=== PATIENT | male | born 1995 | race Caucasian/White ===

== ENCOUNTER 2018-10-15 18:25 | Emergency (ER) | payer SELFPAY ==
[2018-10-15] MEDS ORDERED: Cyclobenzaprine 10 MG Tab PO ONE (18:26)
--- NOTE | 2018-10-15 19:09 | EDM.PDOC ---
ED HPI GENERAL MEDICAL PROBLEM - General Chief Complaint: Lower Extremity Injury/Pain Stated Complaint: Right hip pain Time Seen by Provider: 10/15/18 18:59 - History of Present Illness INITIAL COMMENTS - FREE TEXT/NARRATIVE: Ke is a 23 year old male who presents to the ED with c/o low back pain R> L. He reports he was snowboarding over the weekend. Reports he had a accident in which he "tumbled trying to avoid falling on a kid." He reports he has had pain since, but last night his right leg went numb. He reports he got up from sitting on porch and his right leg was numb again this evening, prompting his ED visit. He rates pain 4/10. Pain is currently located in right lower back. No loss of bowel/bladder. Has tried ibuprofen for pain, with some relief. Denies any other issues. Onset Date: 10/13/18 Duration: Intermittent Location: Reports: Back, Lower Extremity, Right, Radiates to Quality: Reports: Ache Severity: Moderate Improves with: Reports: Medication Worsens with: Reports: Immobilization, Movement Associated Symptoms: Reports: No Other Symptoms. 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 Right Hip Pain Score (Numeric/FACES): 4 - Related Data Allergies Allergy/AdvReac Type Severity Reaction Status Date / Time ceftriaxone [From Rocephin] Allergy Rash Verified 10/15/18 18:34 Home Meds: Home Meds Cyclobenzaprine [Flexeril] 10 mg PO TID PRN #20 tab 10/15/18 [Rx] Past Medical History - Past Health History Medical/Surgical History: Denies Medical/Surgical History Respiratory History: Reports: Asthma - Past Surgical History Other Musculoskeletal Surgeries/Procedures:: left wrist surgery Aug 2017 Social & Family History - Tobacco Use Smoking Status *Q: Current Every Day Smoker Years of Tobacco use: 4 Packs/Tins Daily: 0.5 - Caffeine Use Caffeine Use: Reports: Coffee - Alcohol Use Days Per Week of Alcohol Use: 1 Number of Drinks Per Day: 1 Total Drinks Per Week: 1 - Recreational Drug Use Recreational Drug Use: No Review of Systems - Review of Systems Review Of Systems: ROS reveals no pertinent complaints other than HPI. ED EXAM, GENERAL - Physical Exam Exam: See Below Exam Limited By: No Limitations General Appearance: Alert, WD/WN, No Apparent Distress Eye Exam: Bilateral Eye: EOMI, PERRL Peripheral Pulses: 2+: Dorsalis Pedis (L), Dorsalis Pedis (R) Back Exam: Full Range of Motion, Other (tenderness to right lower back). No: Paraspinal Tenderness, Vertebral Tenderness Extremities: Normal Inspection, Normal Range of Motion, Non-Tender, No Pedal Edema, Normal Capillary Refill Neurological: Alert, Oriented, CN II-XII Intact, Normal Cognition, Normal Gait, Normal Reflexes, No Motor/Sensory Deficits Psychiatric: Normal Affect, Normal Mood Skin Exam: Warm, Dry, Intact, Normal Color, No Rash Course - Vital Signs Last Recorded V/S: Last Vital Signs Temp 97.3 F 10/15/18 18:35 Pulse 90 10/15/18 18:35 Resp 20 10/15/18 18:35 BP 123/85 10/15/18 18:35 Pulse Ox 100 10/15/18 18:35 - Orders/Labs/Meds Orders: Active Orders 24 hr Category Date Time Status Lumbar Spine 2 or 3V [CR] Stat Exams 10/15/18 19:03 Taken Departure - Departure Time of Disposition: 19:38 Disposition: Home, Self-Care 01 Condition: Good Clinical Impression: Spasm of muscle of lower back Low back pain Qualifiers: Chronicity: acute Back pain laterality: right Sciatica presence: without sciatica Qualified Code(s): M54.5 - Low back pain Contusion of lower back Qualifiers: Encounter type: initial encounter Qualified Code(s): S30.0XXA - Contusion of lower back and pelvis, initial encounter - Discharge Information *PRESCRIPTION DRUG MONITORING PROGRAM REVIEWED*: Not Applicable *COPY OF PRESCRIPTION DRUG MONITORING REPORT IN PATIENT PHYLICIA: Not Applicable Instructions: Back Pain, Adult Referrals: Taco Howard PA-C [Primary Care Provider] - Forms: ED Department Discharge Additional Instructions: Discussed xray results with patient. No obvious acute fracture noted. Will notify patient once radiologist report is available. Alternate Tylenol and ibuprofen as needed for pain. Flexeril every 8 hours as needed for low back pain. Alternate ice and heat to affected area. Activity as tolerated. Follow up with PCP if symptoms worsen or do not improve. - My Orders Last 24 Hours: My Active Orders 10/15/18 19:03 Lumbar Spine 2 or 3V [CR] Stat - Assessment/Plan Last 24 Hours: My Active Orders 10/15/18 19:03 Lumbar Spine 2 or 3V [CR] Stat
[2018-10-15] MEDS ORDERED: Take Home: Cyclobenzaprine 10 MG Tab, 4 Tab Pack PO ONE (19:42)
== END 2018-10-15 19:52 | disposition home or self-care (01) ==
LOC: CC.ED 18:25
DX: S30.0XXA Contusion of lower back and pelvis, initial encounter (principal); M62.830 Muscle spasm of back; F17.210 Nicotine dependence, cigarettes, uncomplicated; Z88.8 Allergy status to other drugs, medicaments and biological substances; Y93.23 Activity, snow (alpine) (downhill) skiing, snowboarding, sledding, tobogganing and snow tubing
CPT/HCPCS: 72100; 99283; A9270-GY

== ENCOUNTER → 2019-03-22 | Day surgery (SDC) | payer MEDICAID ==
[~2019-03-22] MED LIST: Lactated Ringers 1,000 ML IV SCH; Propofol 200 MG/20 ML SDV IV ONE
--- NOTE | 2019-03-25 09:14 | OR ---
DATE OF OPERATION: 03/22/2019 PREOPERATIVE DIAGNOSIS: PERSISTENT NAUSEA AND VOMITING. POSTOPERATIVE DIAGNOSIS: MILD TO MODERATE HIATAL HERNIA WITH REFLUX ESOPHAGITIS. SURGEON: Edgar Hodgson MD PROCEDURE: ESOPHAGOGASTRODUODENOSCOPY WITH BIOPSY X2, CORTNEY. ANESTHESIA: MAC via [employer] OFFICER. COMPLICATIONS: None. SPECIMEN: 1. Antral CORTNEY. 2. Distal esophageal biopsy x2. FINDINGS: 1. Full-length EGD. 2. Mild to moderate sized hiatal hernia with reflux esophagitis, grade 1. RECOMMENDATIONS: Ongoing medical followup with Min Howard. INDICATIONS: The patient has been having ongoing issues for over a year of severe nausea and reflux symptoms with vomiting at times. Min sent him for diagnostic EGD. DESCRIPTION OF PROCEDURE: The patient was prepped and draped, placed in the left lateral decubitus position. A lubricated Olympus gastroscope was inserted over a bit and advanced to cricopharyngeus area and easily intubated into the esophagus. The esophageal lining was benign until its most distal portion. The patient's Z-line is located around 37 cm. There is a mild, maybe even slightly moderate-sized hiatal hernia present with a significant amount of spontaneous reflux seen. There is grade 1 distal esophagitis with some linear erythema and erosion. No krystian ulcerations. Two biopsies were taken of the most affected areas. The scope was advanced into the stomach through the pylorus and into the second portion of the duodenum. This and the duodenal bulb were benign. Scope was brought back into the stomach and retroflexed. The upper fundus and cardia were benign. Upon straightening, the rest of the fundus and antrum were unremarkable. A CLOtest was obtained. Air was then suctioned from the stomach and the scope removed without complication. BEBETO/ARTEMIO /[id number]
== END ==
LOC: CC.SDS 12:03
PROVIDERS: ATTEND Family Medicine
DX: K44.9 Diaphragmatic hernia without obstruction or gangrene (principal); K21.0 Gastro-esophageal reflux disease with esophagitis; I51.89 Other ill-defined heart diseases; Z88.1 Allergy status to other antibiotic agents; Z87.891 Personal history of nicotine dependence
CPT/HCPCS: 87081; J2704; J7120

== ENCOUNTER 2019-04-22 13:15 | Emergency (ER) | payer MEDICAID ==
--- NOTE | 2019-04-22 14:46 | EDM.PDOC ---
ED HPI GENERAL MEDICAL PROBLEM - General Chief Complaint: General Stated Complaint: UPSET STOMACH Time Seen by Provider: 04/22/19 14:22 Source of Information: Reports: Patient History Limitations: Reports: No Limitations - History of Present Illness INITIAL COMMENTS - FREE TEXT/NARRATIVE: Ke is a 23 yo male who presents to the ED with concerns of nausea. He states he was spraying his yard with a chemical. "Malathion" and did get some on his skin. Did take a shower to wash it off but is worried that he absorbed too much through his skin since he woke up not feeling well. States he was last exposed around 2030 yesterday evening. He also states he did have some diarrhea when he woke up, which has subsided now. States after the diarrhea this morning has had an upset stomach. Denies any emesis. States he is feeling better this afternoon than this morning. 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 - Past Surgical History Respiratory Surgical History: Reports: None GI Surgical History: Reports: EGD Musculoskeletal Surgical History: Reports: ORIF, Other (See Below) Other Musculoskeletal Surgeries/Procedures:: left wrist surgery Aug 2017 Dermatological Surgical History: Reports: None Social & Family History - Family History Family Medical History: Noncontributory - Tobacco Use Smoking Status *Q: Current Every Day Smoker Years of Tobacco use: 9 Packs/Tins Daily: 1 - Caffeine Use Caffeine Use: Reports: Coffee, Energy Drinks - Recreational Drug Use Recreational Drug Use: No ED ROS GENERAL - Review of Systems Review Of Systems: ROS reveals no pertinent complaints other than HPI. HEENT: Reports: No Symptoms Respiratory: Reports: No Symptoms, Cough (chronic, smoker). Denies: Shortness of Breath Cardiovascular: Reports: No Symptoms GI/Abdominal: Reports: Diarrhea (resolved), Nausea (does suffer from chronic nausea as well d/t GERD). Denies: Abdominal Pain, Vomiting ED EXAM, GENERAL - Physical Exam Exam: See Below Exam Limited By: No Limitations General Appearance: Alert, WD/WN, No Apparent Distress Ears: Normal External Exam, Normal Canal, Hearing Grossly Normal, Normal TMs Nose: Normal Inspection, Normal Mucosa, No Blood Throat/Mouth: Normal Inspection, Normal Lips, Normal Teeth, Normal Gums, Normal Oropharynx, Normal Voice, No Airway Compromise Head: Atraumatic, Normocephalic Neck: Normal Inspection, Supple Respiratory/Chest: No Respiratory Distress, Lungs Clear, Normal Breath Sounds, No Accessory Muscle Use Cardiovascular: Regular Rate, Rhythm, No Murmur GI/Abdominal: Normal Bowel Sounds, Soft, Non-Tender, No Organomegaly, No Distention Extremities: Normal Inspection, Normal Range of Motion, Non-Tender, No Pedal Edema, Normal Capillary Refill Neurological: Alert, Oriented, No Motor/Sensory Deficits Psychiatric: Normal Affect, Normal Mood Skin Exam: Warm, Dry, Intact, Normal Color, No Rash, Other (multiple mosquito bites to bilateral arms. ) Course - Vital Signs Last Recorded V/S: Last Vital Signs Temp 97.8 F 04/22/19 13:31 Pulse 88 04/22/19 13:31 Resp 18 04/22/19 13:31 BP 128/84 04/22/19 13:31 Pulse Ox 98 04/22/19 13:31 Departure - Departure Time of Disposition: 14:43 Disposition: Home, Self-Care 01 Clinical Impression: Nausea, Chemical exposure - Discharge Information Instructions: Nausea and Vomiting, Adult Additional Instructions: 1) Malathion hand out given. 2) Recommend refraining from using Malathion 3) Discussed obtaining labs which Ke would like to wait on. 4) Advised if symptoms worsen, start running fevers, vomiting... Recommend returning for reevaluation 5) Discussed differential diagnosis which could include viruses as well, which will likely run its course. - Problem List & Annotations (1) Chemical exposure SNOMED Code(s): 589299997023064 Code(s): Z77.098 - CONTACT W AND EXPSR TO OTH HAZARD, CHIEFLY NONMED, CHEMICALS Status: Acute Current Visit: Yes (2) Nausea SNOMED Code(s): 192417795 Code(s): R11.0 - NAUSEA Status: Acute Current Visit: Yes - Assessment/Plan Plan: Exam was grossly benign today. Recommend refraining from any further exposure to malathion. Patient declined further evaluation with laboratory work. Advise if symptoms worsen or any concerns to return to ED. Patient verbalized understanding. Handout given on malathion exposure.
== END 2019-04-22 14:52 | disposition home or self-care (01) ==
LOC: CC.ED 13:15
DX: T60.0X1A Toxic effect of organophosphate and carbamate insecticides, accidental (unintentional), initial encounter (principal); R11.0 Nausea; F17.210 Nicotine dependence, cigarettes, uncomplicated; Z79.899 Other long term (current) drug therapy; Z88.1 Allergy status to other antibiotic agents
CPT/HCPCS: 99282

== ENCOUNTER 2019-10-11 21:03 | Emergency (ER) | payer SELFPAY ==
--- NOTE | 2019-10-11 21:40 | EDM.PDOC ---
ED HPI GENERAL MEDICAL PROBLEM - General Chief Complaint: General Stated Complaint: L leg numbness Time Seen by Provider: 10/11/19 21:20 Source of Information: Reports: Patient History Limitations: Reports: No Limitations - History of Present Illness INITIAL COMMENTS - FREE TEXT/NARRATIVE: This patient is a 24 year old male that presents to the ER. Patient reports about one hour ago having numbness to the left hip down the left knee. Patient reports its worse when he lays on his left hip. Patient denies loss of motor function, sensation. Patient denies urinary/bowel incontinence. Onset: Today Onset Date: 10/11/19 Onset Time: 20:40 Duration: Hour(s): (1) Location: Reports: Lower Extremity, Left Severity: Mild Improves with: Reports: None Worsens with: Reports: Other (sitting on left hip) Associated Symptoms: Reports: No Other Symptoms. Denies: Confusion, Chest Pain , Cough, cough w sputum, Diaphoresis, Fever/Chills, Headaches, Loss of Appetite , Malaise, Nausea/Vomiting, Rash, Seizure, Shortness of Breath, Syncope, Weakness Left Leg Pain Score (Numeric/FACES): 4 - Related Data Allergies Allergy/AdvReac Type Severity Reaction Status Date / Time ceftriaxone [From Rocephin] Allergy Rash Verified 10/11/19 21:07 Home Meds: Home Meds Pantoprazole Sodium [Protonix] 40 mg PO DAILY 04/22/19 [History] Past Medical History - Past Health History Medical/Surgical History: Denies Medical/Surgical History Respiratory History: Reports: Asthma Gastrointestinal History: Reports: Hiatal Hernia Musculoskeletal History: Reports: Fracture - Infectious Disease History Infectious Disease History: Reports: Other (See Below) Other Infectious Disease History: 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 - Past Surgical History Respiratory Surgical History: Reports: None GI Surgical History: Reports: EGD Musculoskeletal Surgical History: Reports: ORIF, Other (See Below) Other Musculoskeletal Surgeries/Procedures:: left wrist surgery Aug 2017 Dermatological Surgical History: Reports: None Social & Family History - Family History Family Medical History: Noncontributory - Tobacco Use Smoking Status *Q: Current Every Day Smoker Years of Tobacco use: 10 Packs/Tins Daily: 0.5 - Caffeine Use Caffeine Use: Reports: Coffee, Soda - Alcohol Use Date of Last Drink: 10/11/19 Time of Last Drink: 20:45 - Recreational Drug Use Recreational Drug Use: No ED ROS GENERAL - Review of Systems Review Of Systems: See Below Constitutional: Reports: No Symptoms Respiratory: Reports: No Symptoms Cardiovascular: Reports: No Symptoms GI/Abdominal: Reports: No Symptoms : Reports: No Symptoms. Denies: Incontinence Musculoskeletal: Denies: Neck Pain, Back Pain, Joint Pain, Joint Swelling Skin: Reports: No Symptoms Neurological: Reports: Numbness (left hip to left knee. ) Psychiatric: Reports: No Symptoms Hematologic/Lymphatic: Reports: No Symptoms Immunologic: Reports: No Symptoms ED EXAM, GENERAL - Physical Exam Exam: See Below Exam Limited By: No Limitations General Appearance: Alert, WD/WN, No Apparent Distress Respiratory/Chest: No Respiratory Distress, Lungs Clear, Normal Breath Sounds, No Accessory Muscle Use Cardiovascular: Normal Peripheral Pulses, Regular Rate, Rhythm, No Edema, No Gallop, No JVD, No Murmur, No Rub Peripheral Pulses: 2+: Femoral (L), Femoral (R), Popliteal (L), Popliteal (R), Posterior Tibial (L), Posterior Tibial (R), Dorsalis Pedis (L), Dorsalis Pedis ( R) GI/Abdominal: Soft, Non-Tender Back Exam: Normal Inspection, Full Range of Motion. No: CVA Tenderness (L), CVA Tenderness (R), Decreased Range of Motion, Muscle Spasm, Paraspinal Tenderness, Vertebral Tenderness Extremities: Normal Inspection, Normal Range of Motion, Non-Tender, No Pedal Edema, Normal Capillary Refill. No: Pedal Edema, Slow Capillary Refill, Joint Swelling, Nancy's Sign, Limited Range of Motion, Increased Warmth, Mottled, Pallor, Redness Neurological: Alert, Oriented, Normal Cognition, Normal Gait, No Motor/Sensory Deficits Psychiatric: Normal Affect, Normal Mood Skin Exam: Warm, Dry, Intact, Normal Color, No Rash Course - Vital Signs Last Recorded V/S: Last Vital Signs Temp 98.9 F 10/11/19 21:04 Pulse 74 10/11/19 21:04 Resp 16 10/11/19 21:04 BP 115/84 10/11/19 21:04 Pulse Ox 98 10/11/19 21:04 Departure - Departure Time of Disposition: 21:37 Disposition: Home, Self-Care 01 Condition: Good Clinical Impression: Left leg numbness - Discharge Information *PRESCRIPTION DRUG MONITORING PROGRAM REVIEWED*: Not Applicable *COPY OF PRESCRIPTION DRUG MONITORING REPORT IN PATIENT PHYLICIA: Not Applicable Referrals: PCP,None [Primary Care Provider] - Forms: ED Department Discharge Additional Instructions: Followup with primary care provider Return to the ER for emergencies or other concerns Motrin for pain and numbness Ice as needed Limit activity Sepsis Event Note - Evaluation Sepsis Screening Result: No Definite Risk - Focused Exam Vital Signs: Vital Signs Temp Pulse Resp BP Pulse Ox 10/11/19 21:04 98.9 F 74 16 115/84 98 Date Exam was Performed: 10/11/19 Time Exam was Performed: 21:40 - Assessment/Plan Plan: PLEASE SEE RN NOTE FOR PFSH.
== END 2019-10-11 21:43 | disposition home or self-care (01) ==
LOC: CC.ED 21:03
DX: R20.0 Anesthesia of skin (principal); F17.210 Nicotine dependence, cigarettes, uncomplicated; Z79.899 Other long term (current) drug therapy; Z88.8 Allergy status to other drugs, medicaments and biological substances
CPT/HCPCS: 99283